=== PATIENT | female | born 1975 | race Caucasian/White ===

== ENCOUNTER 2017-11-09 17:21 | Emergency (ER) | payer SELFPAY ==
[2017-11-09 19:50] LABS: Bilirubin Negative (Negative); Blood, Urine Trace (Negative); Clarity CLOUDY (Clear); Glucose, Urine (Dipstick) Negative (Negative); Leukocyte Large (Negative); Nitrite Negative (Negative); Protein, Urine (Dipstick) Negative (Neg-Trace); Specific Gravity, Urine 1.012 (1.002-1.036)
[2017-11-09 19:51] LABS: Bacteria/HPF Rare-Few HPF (None Seen); Hyaline Casts/LPF 0-3 HYALINE CAST LPF (0-3 Hyaline); Pathc Cast-AUWi Flag 0.27 (0-2.49)
[2017-11-12 01:02] LABS: Chlamydia by PCR Not Detected (NotDetected); GC by PCR Not Detected (NotDetected)
== END 2017-11-09 20:45 | disposition home or self-care (01) ==
LOC: ERS 17:21
DX: N76.0 Acute vaginitis (principal); E66.9 Obesity, unspecified; F32.9 Major depressive disorder, single episode, unspecified; F41.9 Anxiety disorder, unspecified; F17.210 Nicotine dependence, cigarettes, uncomplicated; G47.30 Sleep apnea, unspecified
CPT/HCPCS: 81003; 81015; 87086; 87480; 87491; 87510; 87591; 87660; 99283

== ENCOUNTER 2018-09-10 12:28 | Emergency (ER) | payer SELFPAY | END 2018-09-10 13:56 | disposition home or self-care (01) | LOC: ERS 12:28 | DX: H61.21 Impacted cerumen, right ear (principal); H60.91 Unspecified otitis externa, right ear; E66.9 Obesity, unspecified; G47.30 Sleep apnea, unspecified; F41.9 Anxiety disorder, unspecified; F32.9 Major depressive disorder, single episode, unspecified; F17.210 Nicotine dependence, cigarettes, uncomplicated | CPT/HCPCS: 99282 ==

== ENCOUNTER 2018-09-13 11:38 | Emergency (ER) | payer SELFPAY ==
[2018-09-13] MEDS ORDERED: HYDROcodone/Acetaminophen 10/325 mg Tablet ONE (12:18)
[2018-09-13] MEDS ORDERED: HYDROcodone/Acetaminophen 5/325 mg Tablet ONE (12:22)
== END 2018-09-13 13:24 | disposition home or self-care (01) ==
LOC: ERS 11:38
DX: H60.91 Unspecified otitis externa, right ear (principal); G47.30 Sleep apnea, unspecified; F41.9 Anxiety disorder, unspecified; F32.9 Major depressive disorder, single episode, unspecified; F17.210 Nicotine dependence, cigarettes, uncomplicated
CPT/HCPCS: 69210

== ENCOUNTER 2018-09-14 16:46 | Emergency (ER) | payer SELFPAY | END 2018-09-14 17:35 | disposition home or self-care (01) | LOC: ERS 16:46 | DX: R00.0 Tachycardia, unspecified (principal); R06.82 Tachypnea, not elsewhere classified; T40.2X5A Adverse effect of other opioids, initial encounter; G47.30 Sleep apnea, unspecified; E66.9 Obesity, unspecified; F41.9 Anxiety disorder, unspecified; F32.9 Major depressive disorder, single episode, unspecified; F17.210 Nicotine dependence, cigarettes, uncomplicated; Z79.899 Other long term (current) drug therapy | CPT/HCPCS: 93005 ==

== ENCOUNTER 2018-11-20 13:15 | Emergency (ER) | payer SELFPAY | END 2018-11-20 14:02 | disposition home or self-care (01) | LOC: ERS 13:15 | DX: J32.9 Chronic sinusitis, unspecified (principal); L30.4 Erythema intertrigo; G47.30 Sleep apnea, unspecified; F41.9 Anxiety disorder, unspecified; F32.9 Major depressive disorder, single episode, unspecified; F17.210 Nicotine dependence, cigarettes, uncomplicated | CPT/HCPCS: 99283 ==

== ENCOUNTER 2018-12-06 16:21 | Emergency (ER) | payer SELFPAY ==
[2018-12-06 17:09] LABS: Pregnancy Test - Urine (BHCG) Negative (Negative); Pregu Control Background? CLEAR/WHITE (CLR/WHITE); Pregu Control Bar Appear? YES (CONTROL BAR); Specific Gravity 1.004 (1.002-1.036)
== END 2018-12-06 17:35 | disposition home or self-care (01) ==
LOC: ERS 16:21
DX: H60.91 Unspecified otitis externa, right ear (principal); G47.30 Sleep apnea, unspecified; F41.9 Anxiety disorder, unspecified; F17.210 Nicotine dependence, cigarettes, uncomplicated
CPT/HCPCS: 81025; 99283

== ENCOUNTER 2018-12-24 10:43 | Emergency (ER) | payer SELFPAY | END 2018-12-24 12:36 | disposition left against medical advice (07) | LOC: ERS 10:43 | DX: Z53.21 Procedure and treatment not carried out due to patient leaving prior to being seen by health care provider (principal) | CPT/HCPCS: 87804 ==

== ENCOUNTER 2019-07-19 00:23 | Emergency (ER) | payer SELFPAY | END 2019-07-19 01:08 | disposition home or self-care (01) | LOC: ERS 00:23 | DX: L02.413 Cutaneous abscess of right upper limb (principal); F17.210 Nicotine dependence, cigarettes, uncomplicated; E66.9 Obesity, unspecified; G47.30 Sleep apnea, unspecified | CPT/HCPCS: 23930 ==

== ENCOUNTER 2019-10-06 18:57 | Emergency (ER) | payer SELFPAY | END 2019-10-06 20:34 | disposition home or self-care (01) | LOC: ERS 18:57 | DX: L02.211 Cutaneous abscess of abdominal wall (principal); L03.311 Cellulitis of abdominal wall; G47.30 Sleep apnea, unspecified; E66.9 Obesity, unspecified; F41.9 Anxiety disorder, unspecified; F17.210 Nicotine dependence, cigarettes, uncomplicated | CPT/HCPCS: 99283 ==

== ENCOUNTER 2019-11-25 20:09 | Emergency (ER) | payer SELFPAY | END 2019-11-25 21:18 | disposition home or self-care (01) | LOC: ERS 20:09 | DX: K03.81 Cracked tooth (principal); K08.89 Other specified disorders of teeth and supporting structures; K02.9 Dental caries, unspecified; F17.210 Nicotine dependence, cigarettes, uncomplicated; G47.30 Sleep apnea, unspecified; E66.9 Obesity, unspecified; F41.9 Anxiety disorder, unspecified | CPT/HCPCS: 99282 ==